=== PATIENT | male | born 1950 | race Caucasian/White ===

== ENCOUNTER 2017-03-06 12:32 | Day surgery (SDC) | payer OTHER, MEDICAID ==
[2017-03-06] MEDS ORDERED: MIDAZOLAM 1 MG/ML 2 ML INJ (15:27)
[2017-03-06] MEDS ORDERED: PROPOFOL 20 ML (15:27)
[2017-03-06] MEDS ORDERED: ONDANSETRON 4 MG INJ (15:27)
[2017-03-06] MEDS ORDERED: DEXAMETHASONE 4 MG/ML 1 ML INJ (15:27)
[2017-03-06] MEDS ORDERED: ROCURONIUM 50 MG INJ (15:27)
[2017-03-06] MEDS ORDERED: FENTAnyl 50 MCG/ML VIAL (15:27)
[2017-03-06] MEDS ORDERED: GLYCOPYRROLATE 0.4 MG INJ (15:27)
[2017-03-06] MEDS ORDERED: CEFAZOLIN 1 GM INJ (15:27)
[2017-03-06] MEDS ORDERED: NEOSTIGMINE 3 MG/3 ML SYRINGE (15:27)
[2017-03-06] MEDS ORDERED: IPRATROPIUM (NEB) 0.5 MG/2.5 ML AMP HHN (17:00)
[2017-03-06] MEDS ORDERED: OXYCODONE/ACETAMINOPHEN (5/325) TAB PO ×2 (17:00)
[2017-03-06] MEDS ORDERED: EPHEDrine SULFATE 50 MG/5 ML SYG IV (17:00)
[2017-03-06] MEDS ORDERED: LABETALOL HCL 20MG INJ IV (17:00)
[2017-03-06] MEDS ORDERED: FENTAnyl 50 MCG/ML VIAL IV ×3 (17:00)
[2017-03-06] MEDS ORDERED: MIDAZOLAM 1 MG/ML 2 ML INJ IV (17:00)
[2017-03-06] MEDS ORDERED: ALBUTEROL 0.083% (NEB) 2.5 MG/3 ML AMP HHN (17:00)
[2017-03-06] MEDS ORDERED: TRIMETHOBENZAMIDE 100 MG/ML VIAL IM (17:00)
[2017-03-06] MEDS ORDERED: ONDANSETRON 4 MG INJ IV (17:00)
[2017-03-06] MEDS ORDERED: DIPHENHYDRAMINE 50 MG INJ IV (17:00)
[2017-03-06] MEDS ORDERED: HYDROmorphONE (0.2 MG/ML) 10ML SYG IV ×3 (17:00)
[2017-03-06] MEDS ORDERED: MEPERIDINE 25 MG INJ IV (17:00)
[2017-03-06] MEDS ORDERED: hydrALAzine 20 MG INJ IV (17:00)
[2017-03-06] MEDS: COCAINE 4% 4 ML TOP (17:06)
[2017-03-06] MEDS: BACITRACIN/POLYMYXIN 28.35 GM OINT TOP (17:06)
[2017-03-06] MEDS: LIDOCAINE 1%/EPI 30 ML INJ (17:07)
[2017-03-06] MEDS: OXYMETAZOLINE 0.05% 15 ML NAS SPRAY NASAL (17:08)
[2017-03-06] MEDS ORDERED: SUGAMMADEX SODIUM 200 MG/2 ML VIAL IV (17:18)
[2017-03-06] MEDS ORDERED: HYDROCODONE/APAP (5/325) TAB PO (17:30)
== END 2017-03-06 19:00 | disposition home or self-care (01) ==
LOC: SDS 12:32
DX: J32.9 Chronic sinusitis, unspecified (principal); J30.9 Allergic rhinitis, unspecified
CPT/HCPCS: 31090